=== PATIENT | male | born 1980 | race Native Hawaiian/Other Pacific Islander ===

== ENCOUNTER 2017-05-27 22:43 | Emergency (ER) | payer OTHER ==
[2017-05-28] MEDS ORDERED: ASPIRIN 81 MG PO STA (00:01)
[2017-05-28] MEDS ORDERED: RX INFO: IV CONTRAST WAS GIVEN 1 EACH MISC MISCELLANE PRN (00:01)
[2017-05-28] MEDS ORDERED: MORPHINE SULFATE 2 MG/ML SYRINGE IVP ONE (00:01)
[2017-05-28] MEDS ORDERED: ONDANSETRON 4 MG/2 ML VIAL IVP STA (00:06)
--- NOTE | 2017-05-28 00:08 | ED ---
Chest Pain [facility] - General Chief Complaint: Chest Pain Stated Complaint: Chest/Rib/Back Pain Time Seen by Provider: 05/27/17 23:38 Source: patient Mode of arrival: wheelchair Limitations: no limitations - History of Present Illness Initial Comments: patient is a 37-year-old male with no reported medical history who presents with a chief complaint chest pain and had back pain. The patient states that this pain started around 8 PM today. He cannot identify any inciting incidences. There are no aggravating or alleviating factors. Timing is constant. Patient states that he has not experienced pain like this before. Patient denies any nausea, vomiting, diaphoresis, lightheadedness. - Related Data Previous Rx's Medication Instructions Recorded Lisinopril [Prinivil] 20 mg PO DAILY #30 tablet 05/28/17 Allergies Allergy/AdvReac Type Severity Reaction Status Date / Time aspirin Allergy Unknown Verified 05/27/17 22:49 Review of Systems ROS Statement: Those systems with pertinent positive or pertinent negative responses have been documented in the HPI. ROS Other: All systems not noted in ROS Statement are negative. Cardiovascular: Reports: chest pain Past Medical History Past Medical History: No Reported History History of Any Multi-Drug Resistant Organisms: None Reported Past Surgical History: No Surgical Hx Reported Past Psychological History: No Psychological Hx Reported Smoking Status: Current every day smoker Past Alcohol Use History: None Reported Past Drug Use History: None Reported General Exam Limitations: no limitations General appearance: alert, in no apparent distress Head exam: Present: atraumatic, normocephalic Eye exam: Present: normal appearance ENT exam: Present: normal exam Neck exam: Present: normal inspection Respiratory exam: Present: normal lung sounds bilaterally. Absent: respiratory distress Cardiovascular Exam: Present: regular rate, normal rhythm GI/Abdominal exam: Present: soft, tenderness (patient mild tenderness to palpation in the epigastric region). Absent: distended Rectal exam: Present: deferred Extremities exam: Present: normal inspection Back exam: Present: normal inspection Neurological exam: Present: alert, oriented X3 Psychiatric exam: Present: normal affect, normal mood Skin exam: Present: warm, dry, intact Course Vital Signs 05/27/17 05/27/17 22:47 23:49 Temperature 97.9 F Pulse Rate 83 76 Respiratory 22 20 Rate Blood Pressure 183/119 172/92 O2 Sat by Pulse 100 97 Oximetry Chest Pain [facility] patient presents with a chief complaint of chest pain and back pain. On initial evaluation, he is in no acute distress however he is noted to be hypertensive at 180/110. At this time, EKG performed at 2335 shows normal sinus rhythm with a rate of 103 bpm. EKG is otherwise unremarkable. Patient will have basic labs including liver profile and lipase. He'll be sent for a CT angio for evaluation of the aorta.patient was given aspirin and a dose of morphine for pain 1:16 AM Laboratory evaluation this patient is unremarkable except for a mild white count of 13,000. Renal function appears to be stable. CT evaluation of the thoracic and abdominal aorta shows no acute process. Aorta is normal caliber and widely patent. I discussed results with the patient. At this time, he is instructed to take Motrin and Tylenol for pain. Patient will be started on lisinopril 20 mg daily until he can follow-up with his primary care doctor for hypertension. Patient is agreeable with current care plan. On reevaluation he states he is feeling better. patient is currently eating a bag of chips. Disposition Clinical Impression: Chest pain, Abdominal pain, Hypertension Disposition: HOME SELF-CARE Condition: Good Instructions: Chest Pain (ED), Abdominal Pain (ED) Referrals: None,Stated [Primary Care Provider] - 1-2 days
[2017-05-28 00:21] LABS: Basophils # (A) 0.1 k/uL (0-0.2); Basophils % (A) 1 %; Eosinophils # (A) 0.4 k/uL (0-0.7); Eosinophils % (A) 3 %; HCT 47.1 % (39.0-53.0); HGB 16.4 gm/dL (13.0-17.5); Lymphocytes # (A) 4.5 k/uL (1.0-4.8); Lymphocytes % (A) 32 %; MCH 30.7 pg (25.0-35.0); MCHC 34.9 g/dL (31.0-37.0); Mean Platelet Volume 7.6; Monocytes # (A) 0.6 k/uL (0-1.0); Monocytes % (A) 4 %; Neutrophils # (A) 8.1 k/uL (1.3-7.7); Neutrophils % (A) 59 %; Platelet Count 270 k/uL (150-450); RBC 5.35 m/uL (4.30-5.90); RDW 12.9 % (11.5-15.5); WBC 13.8 k/uL (3.8-10.6)
[2017-05-28 00:28] LABS: ALT 49 U/L (21-72); AST 31 U/L (17-59); Albumin 4.9 g/dL (3.5-5.0); Alkaline Phosphatase 77 U/L (38-126); Anion Gap 14 mmol/L; Blood Urea Nitrogen 18 mg/dL (9-20); Calcium 10.3 mg/dL (8.4-10.2); Carbon Dioxide 27 mmol/L (22-30); Chloride 103 mmol/L (98-107); Glucose 85 mg/dL (74-99); Lipase 156 U/L (23-300); Potassium 4.2 mmol/L (3.5-5.1); Sodium 144 mmol/L (137-145); Total Bilirubin 0.3 mg/dL (0.2-1.3); Total Protein 7.9 g/dL (6.3-8.2)
[2017-05-28 00:46] VITALS: RESP 20
--- NOTE | 2017-05-28 01:06 | CT ---
EXAMINATION TYPE: CT angio thoracic/abd aorta DATE OF EXAM: 05/28/2017 COMPARISON: NONE HISTORY: Chest pain/back pain CT DLP: 846.30 mGycm. Automated Exposure Control for Dose Reduction was Utilized. CONTRAST: CT scan of the thorax, abdomen and pelvis is performed with IV Contrast, patient injected with 100 mL of Omnipaque 350. FINDINGS: There are 3-D post processed images. The lungs are clear of infiltrate. There is no pleural effusion. Heart size is normal. There is no pe ricardial effusion. The thoracic aorta has normal size. There is no evidence of aneurysm or dissection. I see no obvious filling defects in the pulmonary arteries. The abdominal aorta is widely patent. There is no evidence of aortic aneurysm or dissection. There is wide patency of the celiac artery and superior mesenteric artery. There is wide patency of t he iliac arteries. The renal arteries appear normal. There is a loop of small bowel in the lower abdo men measures up to 2.5 cm with fluid levels. There is no free air. There is no ascites. There is decr eased density throughout the liver consistent with fatty infiltration. I see no bony destructive proc ess. CONCLUSION: Negative CT angiogram of the chest and abdomen. There is some evidence for mild small bowel ileus. Fatty infiltration of the liver.
[2017-05-28] MEDS ORDERED: KETOROLAC 30 MG/ML 1 ML VIAL IVP STA (01:17)
[2017-05-28 01:33] VITALS: BP 170/93; PULSE 68; TEMP 97.7
== END 2017-05-28 01:38 | disposition home or self-care (01) ==
LOC: EC 22:43
DX: I10 Essential (primary) hypertension (principal); R07.9 Chest pain, unspecified; R10.9 Unspecified abdominal pain; M54.9 Dorsalgia, unspecified; F17.200 Nicotine dependence, unspecified, uncomplicated; Z88.6 Allergy status to analgesic agent; Z53.20 Procedure and treatment not carried out because of patient's decision for unspecified reasons
CPT/HCPCS: 36415; 93005; 80053; 83690; 84484; 85025; 75635; 71275; 99285; 96374; 96375 ×2; Q9967; J2405; J1885; J2270

== ENCOUNTER 2017-06-09 11:03 | Emergency (ER) | payer OTHER ==
[2017-06-09] MEDS ORDERED: KETOROLAC 30 MG/ML 1 ML VIAL IVP STA (12:46)
--- NOTE | 2017-06-09 12:50 | ED ---
General Adult HPI - General Chief complaint: Neck Pain/Injury Stated complaint: Fall-Diff Breathing, Back Pain Time Seen by Provider: 06/09/17 12:39 Source: patient, RN notes reviewed Mode of arrival: ambulatory Limitations: no limitations - History of Present Illness Initial comments: Patient 37-year-old male who presents emergency room today with a chief complaint of a fall that occurred yesterday. Since he was walking down some stairs tripped over cat falling down hitting the back of his posterior mid back. He states he does feel some discomfort in this area. He states this morning was having a difficult time sleeping. He woke up approximately 3 AM with a squeezing pressure type pain in his lower ribs bilaterally. He does admit that he had similar symptoms a few weeks ago was seen here in the emergency room. He states that last a few days and went away. Patient currently rates pain 8/10. Patient states can't seem to find comfortable position no matter how he sits or lays. Patient denies any other complaints or symptoms. He states that when he was seen previously for this he was having chest pain at this time has no chest pain today. Patient denies any recent fever , chills, shortness of breath, chest pain, back pain, abdominal pain, nausea or vomiting, numbness or tingling, dysuria or hematuria, constipation or diarrhea, headaches or visual changes, or any other complaints. - Related Data Previous Rx's Medication Instructions Recorded Lisinopril [Prinivil] 20 mg PO DAILY #30 tablet 05/28/17 Cyclobenzaprine [Flexeril] 10 mg PO TID #20 tab 06/09/17 Ibuprofen [Motrin] 600 mg PO Q6HR PRN #40 day 06/09/17 Allergies Allergy/AdvReac Type Severity Reaction Status Date / Time aspirin Allergy Unknown Verified 06/09/17 11:26 Review of Systems ROS Statement: Those systems with pertinent positive or pertinent negative responses have been documented in the HPI. ROS Other: All systems not noted in ROS Statement are negative. Past Medical History Past Medical History: No Reported History History of Any Multi-Drug Resistant Organisms: None Reported Past Surgical History: No Surgical Hx Reported Past Psychological History: No Psychological Hx Reported Smoking Status: Current every day smoker Past Alcohol Use History: None Reported Past Drug Use History: None Reported General Exam - General Exam Comments Initial Comments: General: The patient is awake and alert, in no distress, and does not appear acutely ill. Eye: Pupils are equal, round and reactive to light, extra-ocular movements are intact. No nystagmus. There is normal conjunctiva bilaterally. No signs of icterus. Ears, nose, mouth and throat: There are moist mucous membranes and no oral lesions. Neck: The neck is supple, there is no tenderness or JVD. Cardiovascular: There is a regular rate and rhythm. No murmur, rub or gallop is appreciated. Respiratory: Lungs are clear to auscultation, respirations are non-labored, breath sounds are equal. No wheezes, stridor, rales, or rhonchi. Gastrointestinal: Normal appearance of the abdomen. Normal bowel sounds. Abdomen soft on palpation. Mild tenderness epigastric. No rebound tenderness. No guarding. Musculoskeletal: Normal ROM, no tenderness. Strength 5/5. Sensation intact. Pulses equal bilaterally 2+. Neurological: A&O x 3. CN II-XII intact, There are no obvious motor or sensory deficits. Coordination appears grossly intact. Speech is normal. Skin: Skin is warm and dry and no rashes or lesions are noted. Psychiatric: Cooperative, appropriate mood & affect, normal judgment. Limitations: no limitations Course Vital Signs 06/09/17 11:24 Temperature 98.4 F Pulse Rate 82 Respiratory 20 Rate Blood Pressure 169/103 O2 Sat by Pulse 99 Oximetry EKG Findings - EKG Comments: EKG Findings:: EKG performed at 1305: A 12-lead EKG was performed and interpreted by me as showing the following: Rate is 61, and rhythm is normal sinus. There are normal QRS complexes and normal R-wave progression. ST segments have no elevation or depression, and NV segments appear normal. Medical Decision Making - Medical Decision Making Case discussed in detail with attending physician Dr. Nick. The patient reexamined at this time shows no signs of distress. Patient's EKG shows normal sinus rhythm. Patient's recent visit on May 27 was reviewed showing that he did have a CTA of thoracic showing a normal abnormality of the abdomen and chest at that time. Patient states his symptoms somewhat similar but different today. He states same type of rib pain there is no chest pain today. Patient' s x-rays are unremarkable today. Patient's enzymes negative. His symptoms started over 8 hours ago. At this time is feeling better after some Toradol. Patient discharged home to continue on anti-inflammatories and also tried a muscle relaxer. Advised follow same doctor over the next 2 days return to emergency room symptoms increase worsen. 1420: Blood pressure 148/95 - Lab Data Result diagrams: 06/09/17 13:10 06/09/17 13:10 Lab Results 06/09/17 06/09/17 06/09/17 Range/Units 13:10 13:10 13:10 WBC 10.5 (3.8-10.6) k/uL RBC 5.33 (4.30-5.90) m/uL Hgb 16.3 (13.0-17.5) gm/dL Hct 46.4 (39.0-53.0) % MCV 87.0 (80.0-100.0) fL MCH 30.5 (25.0-35.0) pg MCHC 35.1 (31.0-37.0) g/dL RDW 12.8 (11.5-15.5) % Plt Count 233 (150-450) k/uL Neutrophils % 63 % Lymphocytes % 29 % Monocytes % 4 % Eosinophils % 2 % Basophils % 1 % Neutrophils # 6.6 (1.3-7.7) k/uL Lymphocytes # 3.0 (1.0-4.8) k/uL Monocytes # 0.4 (0-1.0) k/uL Eosinophils # 0.2 (0-0.7) k/uL Basophils # 0.1 (0-0.2) k/uL Sodium 144 (137-145) mmol/L Potassium 4.4 (3.5-5.1) mmol/L Chloride 105 (98-107) mmol/L Carbon Dioxide 27 (22-30) mmol/L Anion Gap 12 mmol/L BUN 14 (9-20) mg/dL Creatinine 0.70 (0.66-1.25) mg/dL Est GFR (MDRD) Af Amer >60 (>60 ml/min/1.73 sqM) Est GFR (MDRD) Non-Af >60 (>60 ml/min/1.73 sqM) Glucose 93 (74-99) mg/dL Calcium 9.8 (8.4-10.2) mg/dL Total Bilirubin 0.3 (0.2-1.3) mg/dL AST 24 (17-59) U/L ALT 38 (21-72) U/L Alkaline Phosphatase 71 (38-126) U/L Total Creatine Kinase 93 (55-170) U/L CK-MB (CK-2) 0.5 (0.0-2.4) ng/mL CK-MB (CK-2) Rel Index 0.5 Troponin I <0.012 (0.000-0.034) ng/mL Total Protein 7.3 (6.3-8.2) g/dL Albumin 4.6 (3.5-5.0) g/dL Amylase 39 (30-110) U/L Lipase 81 (23-300) U/L Disposition Clinical Impression: Rib pain, Fall, Back pain Disposition: HOME SELF-CARE Condition: Good Instructions: Back Pain (ED) Additional Instructions: Please use medication as discussed. Please follow-up with family doctor in the next 2 days of symptoms have not improved. Please return to emergency room if the symptoms increase or worsen or for any other concerns. Prescriptions: Cyclobenzaprine [Flexeril] 10 mg PO TID #20 tab Ibuprofen [Motrin] 600 mg PO Q6HR PRN #40 day PRN Reason: Pain Referrals: Bernard Bowers MD [Primary Care Provider] - 1-2 days Time of Disposition: 14:24
[2017-06-09 13:18] LABS: Basophils # (A) 0.1 k/uL (0-0.2); Basophils % (A) 1 %; Eosinophils # (A) 0.2 k/uL (0-0.7); Eosinophils % (A) 2 %; HCT 46.4 % (39.0-53.0); HGB 16.3 gm/dL (13.0-17.5); Lymphocytes % (A) 29 %; MCH 30.5 pg (25.0-35.0); MCHC 35.1 g/dL (31.0-37.0); Mean Platelet Volume 7.4; Monocytes # (A) 0.4 k/uL (0-1.0); Monocytes % (A) 4 %; Neutrophils # (A) 6.6 k/uL (1.3-7.7); Neutrophils % (A) 63 %; Platelet Count 233 k/uL (150-450); RBC 5.33 m/uL (4.30-5.90); RDW 12.8 % (11.5-15.5); WBC 10.5 k/uL (3.8-10.6)
[2017-06-09 13:28] LABS: ALT 38 U/L (21-72); AST 24 U/L (17-59); Albumin 4.6 g/dL (3.5-5.0); Alkaline Phosphatase 71 U/L (38-126); Amylase 39 U/L (30-110); Anion Gap 12 mmol/L; Blood Urea Nitrogen 14 mg/dL (9-20); Calcium 9.8 mg/dL (8.4-10.2); Carbon Dioxide 27 mmol/L (22-30); Chloride 105 mmol/L (98-107); Glucose 93 mg/dL (74-99); Lipase 81 U/L (23-300); Potassium 4.4 mmol/L (3.5-5.1); Sodium 144 mmol/L (137-145); Total Bilirubin 0.3 mg/dL (0.2-1.3); Total Protein 7.3 g/dL (6.3-8.2)
--- NOTE | 2017-06-09 13:28 | XR ---
EXAMINATION TYPE: XR chest 2V DATE OF EXAM: 06/09/2017 COMPARISON: NONE HISTORY: Chest pain, difficulty breathing, trauma and pain TECHNIQUE: Frontal and lateral views of the chest are obtained. FINDINGS: There is no focal air space opacity, pleural effusion, or pneumothorax seen. The cardiac silhouette size is within normal limits. There is a mild spinal curvature. The osseous structures ar e intact. IMPRESSION: No acute cardiopulmonary process.
--- NOTE | 2017-06-09 13:36 | XR ---
EXAMINATION TYPE: XR thoracic spine complete DATE OF EXAM: 06/09/2017 CLINICAL HISTORY: Fall with mid back pain. TECHNIQUE: Frontal, lateral, and swimmer's view of thoracic spine are obtained. COMPARISON: None. FINDINGS: Thoracic spine show satisfactory alignment without evidence of acute fracture or dislocatio n. There is a minimal S-shaped scoliotic curvature of the visualized thoracolumbar spine, possibly po sitional in nature. Vertebral body heights and disc space heights are preserved. Mild multilevel dege nerative disc disease is seen as small anterior osteophytes. Visualized ribs are unremarkable. IMPRESSION: No acute fracture or malalignment is seen in the thoracic spine.
[2017-06-09 13:45] LABS: Creatine Kinase 93 U/L (55-170)
[2017-06-09 13:57] LABS: Creatine Kinase MB 0.5 ng/mL (0.0-2.4); Troponin I <0.012 ng/mL (0.000-0.034)
[2017-06-09 14:40] VITALS: BP 140/87; PULSE 64; RESP 16; TEMP 98.1
== END 2017-06-09 14:50 | disposition home or self-care (01) ==
LOC: EC 11:03
DX: M54.9 Dorsalgia, unspecified (principal); R07.81 Pleurodynia; M54.2 Cervicalgia; F17.200 Nicotine dependence, unspecified, uncomplicated; Z88.6 Allergy status to analgesic agent; W10.9XXA Fall (on) (from) unspecified stairs and steps, initial encounter; Y93.01 Activity, walking, marching and hiking
CPT/HCPCS: 99284; 96374; 80053; 36415; 93005; 82150; 82550; 82553; 83690; 84484; 85025; 72072; 71046; J1885

== ENCOUNTER 2022-07-24 13:59 | Emergency (ER) | payer OTHER ==
[2022-07-24 14:14] VITALS: RESP 18
[2022-07-24] MEDS ORDERED: hydrALAZINE HCL 20 MG/ML 1 ML VIAL IVP STA ×3 (14:25→17:10)
[2022-07-24] MEDS ORDERED: KETOROLAC 15 MG/ML 1 ML VIAL IVP STA (14:39)
[2022-07-24] MEDS ORDERED: ORPHENADRINE 30 MG/ML 2 ML VIAL IVP STA (14:39)
[2022-07-24 14:52] LABS: Basophils # (A) 0.1 k/uL (0-0.2); Basophils % (A) 1 %; Eosinophils # (A) 0.4 k/uL (0-0.7); Eosinophils % (A) 4 %; HCT 49.2 % (39.0-53.0); HGB 17.2 gm/dL (13.0-17.5); Lymphocytes # (A) 3.3 k/uL (1.0-4.8); Lymphocytes % (A) 33 %; MCH 30.4 pg (25.0-35.0); MCV 86.7 fL (80.0-100.0); Mean Platelet Volume 8.9; Monocytes # (A) 0.4 k/uL (0-1.0); Monocytes % (A) 4 %; Neutrophils # (A) 5.7 k/uL (1.3-7.7); Neutrophils % (A) 56 %; Platelet Count 176 k/uL (150-450); RBC 5.67 m/uL (4.30-5.90); RDW 14.1 % (11.5-15.5); WBC 10.2 k/uL (3.8-10.6)
[2022-07-24 15:03] LABS: INR 0.9 (<1.2); Partial Thromboplastin Time 23.8 sec (22.0-30.0); Prothrombin Time 9.8 sec (9.0-12.0)
[2022-07-24 15:04] LABS: ALT 35 U/L (4-49); AST 31 U/L (17-59); African American GFR (CKD) >90 (>60 ml/min/1.73 sqM); Albumin 4.6 g/dL (3.5-5.0); Alkaline Phosphatase 73 U/L (38-126); Anion Gap 8 mmol/L; Blood Urea Nitrogen 15 mg/dL (9-20); Calcium 8.9 mg/dL (8.4-10.2); Carbon Dioxide 25 mmol/L (22-30); Chloride 106 mmol/L (98-107); Glucose 119 mg/dL (74-99); Magnesium 2.1 mg/dL (1.6-2.3); Non-African American GFR(CKD) >90 (>60 ml/min/1.73 sqM); Potassium 3.8 mmol/L (3.5-5.1); Sodium 139 mmol/L (137-145); Total Bilirubin 0.7 mg/dL (0.2-1.3); Total Protein 7.4 g/dL (6.3-8.2)
--- NOTE | 2022-07-24 15:14 | XR ---
EXAMINATION TYPE: XR chest 2V DATE OF EXAM: 07/24/2022 COMPARISON: June 09, 2017 HISTORY: Chest pain TECHNIQUE: FINDINGS: Heart and mediastinum are normal. Lungs are clear. Diaphragm is normal. There are chest cricket ds. Bony thorax is intact IMPRESSION: Normal chest. No change.
[2022-07-24] MEDS ORDERED: DEXAMETHASONE SOD PHOSPHATE 10 MG/ML 1 ML VIAL IVP STA (15:38)
--- NOTE | 2022-07-24 16:22 | ED ---
General Adult HPI - General Chief complaint: Extremity Injury, Upper Stated complaint: rt arm numbness Time Seen by Provider: 07/24/22 14:16 Source: patient Mode of arrival: ambulatory Limitations: no limitations - History of Present Illness Initial comments: Patient is a 42-year-old male presenting with chief complaint of right forearm pain for the past week. Patient states that the pain comes and goes, feels like a throbbing pain throughout the forearm and hand, pain does not extend up past the elbow. Patient denies any injury or trauma. No swelling or discoloration. Patient does get numbness to the fingers. States the pain mainly follows along the medial border of the forearm. Patient does admit to working a job with repetitive motions. No chest pain or difficulty breathing. No palpitations or weakness. No nausea or vomiting. No headache, vision or hearing changes, dizziness. - Related Data Previous Rx's Medication Instructions Recorded amLODIPine [Norvasc] 5 mg PO DAILY #7 tab 07/24/22 methylPREDNISolone Dose Pack 4 mg PO DIRECTED #1 packet 07/24/22 [Medrol Dose Pack] Allergies Allergy/AdvReac Type Severity Reaction Status Date / Time aspirin Allergy Unknown Verified 07/24/22 15:17 Review of Systems ROS Statement: Those systems with pertinent positive or pertinent negative responses have been documented in the HPI. ROS Other: All systems not noted in ROS Statement are negative. Past Medical History Past Medical History: No Reported History History of Any Multi-Drug Resistant Organisms: None Reported Past Surgical History: No Surgical Hx Reported Past Psychological History: No Psychological Hx Reported Smoking Status: Current every day smoker Past Alcohol Use History: None Reported Past Drug Use History: None Reported General Exam Limitations: no limitations General appearance: alert, in no apparent distress Head exam: Present: atraumatic, normocephalic, normal inspection Eye exam: Present: normal appearance Neck exam: Present: normal inspection, full ROM Respiratory exam: Present: normal lung sounds bilaterally. Absent: respiratory distress, wheezes, rales, rhonchi, stridor Cardiovascular Exam: Present: regular rate, normal rhythm, normal heart sounds. Absent: systolic murmur, diastolic murmur, rubs, gallop, clicks Right Forearm Wrist exam: Present: normal inspection, full ROM. Absent: tenderness, swelling, ecchymosis, deformity, erythema Vascular: Present: radial pulse (2+). Absent: vascular compromise Neurological exam: Present: alert, oriented X3, CN II-XII intact Psychiatric exam: Present: normal affect, normal mood Skin exam: Present: warm, dry, intact, normal color. Absent: rash Course Vital Signs 07/24/22 07/24/22 07/24/22 14:12 14:33 15:58 Temperature 97.5 F L Pulse Rate 60 56 L 57 L Respiratory 18 18 18 Rate Blood Pressure 215/131 151/101 202/124 O2 Sat by Pulse 98 99 98 Oximetry 07/24/22 07/24/22 07/24/22 16:38 16:51 17:19 Temperature Pulse Rate 75 66 68 Respiratory 18 18 18 Rate Blood Pressure 170/111 194/125 189/119 O2 Sat by Pulse 97 97 Oximetry 07/24/22 07/24/22 07/24/22 17:39 18:00 18:11 Temperature 98.4 F Pulse Rate 71 79 84 Respiratory 18 18 18 Rate Blood Pressure 182/128 168/106 145/89 O2 Sat by Pulse 97 97 98 Oximetry EKG Findings - EKG Comments: EKG Findings:: Sinus rhythm ventricular rate 60. KS interval 161. QRS 117. QT 454. QTC 454. T-wave inversion in leads 1 and aVL Medical Decision Making - Medical Decision Making Was pt. sent in by a medical professional or institution ([facility], COMMISSARY WORKER, urgent care, hospital, or [facility]...) When possible be specific @ -No Did you speak to anyone other than the patient for history (EMS, parent, family, police, friend...)? What history was obtained from this source @ -No Did you review nursing and triage notes (agree or disagree)? Why? @ -I reviewed and agree with nursing and triage notes Were old charts reviewed (outside hosp., previous admission, EMS record, old EKG, old radiological studies, urgent care reports/EKG's, [facility] records)? Report findings @ -No old charts were reviewed Differential Diagnosis (chest pain, altered mental status, abdominal pain women, abdominal pain men, vaginal bleeding, weakness, fever, dyspnea, syncope, headache, dizziness, GI bleed, back pain, seizure, CVA, palpatations, mental health, musculoskeletal)? @ -Differential includes nerve impingement, sprain, DVT, cardiac ischemia, this is not an all inclusive list EKG interpreted by me (3pts min.). @ -As above X-rays interpreted by me (1pt min.). @ -Chest x-ray shows no acute process CT interpreted by me (1pt min.). @ -None done U/S interpreted by me (1pt. min.). @ -Ultrasound shows no evidence of DVT What testing was considered but not performed or refused? (CT, X-rays, U/S, labs)? Why? @ -None What meds were considered but not given or refused? Why? @ -None Did you discuss the management of the patient with other professionals (professionals i.e. DrKirk, PA, COMMISSARY WORKER, lab, RT, psych nurse, social services assistant, mediation commissioner, teacher, v/stol landing signal officer, machine adjuster leader case trim)? Give summary @ -No Was smoking cessation discussed for >3mins.? @ -No Was critical care preformed (if so, how long)? @ -No Were there social determinants of health that impacted care today? How? (Homelessness, low income, unemployed, alcoholism, drug addiction, transportation, low edu. Level, literacy, decrease access to med. care, half-way, rehab)? @ -No Was there de-escalation of care discussed even if they declined (Discuss DNR or withdrawal of care, Hospice)? DNR status @ -No What co-morbidities impacted this encounter? (DM, HTN, Smoking, COPD, CAD, Cancer, CVA, ARF, Chemo, Hep., AIDS, mental health diagnosis, sleep apnea, morbid obesity)? @ -Hypertension Was patient admitted / discharged? Hospital course, mention meds given and route, prescriptions, significant lab abnormalities, going to OR and other pertinent info. @ -Patient is a 42-year-old male presenting with chief complaint of right forearm pain as well as numbness and tingling that been going on for the last week. On physical examination the patient is hypertensive, he does not see a PCP and is not on any antihypertensives. Describes pain in what seems to be a nerve distribution. Lab work shows no leukocytosis or anemia. CMP is essentially unremarkable. Troponin is less than 0.012 and EKG shows no acute process. Chest x-ray shows no acute process and ultrasound shows no evidence of DVT. Patient is given 2 doses of hydralazine which helps normalize his blood pressure. Patient was started on Medrol Dosepak for suspected nerve related pain. He is started on amlodipine with a 7 day supply and instructed to follow- up with his PCP, call the office tomorrow. Follow-up with PCP. Report back to ER with any new or worsening symptoms. Discussed return parameters and answered all questions. Patient conveyed verbal understanding and agreed to the plan. I discussed this case in detail with my attending Dr. Kimbrough Undiagnosed new problem with uncertain prognosis? @ -No Drug Therapy requiring intensive monitoring for toxicity (Heparin, Nitro, Insulin, Cardizem)? @ -No Were any procedures done? @ -No Diagnosis/symptom? @ -Paresthesias Acute, or Chronic, or Acute on Chronic? @ -Acute Uncomplicated (without systemic symptoms) or Complicated (systemic symptoms)? @ -Uncomplicated Side effects of treatment? @ -No Exacerbation, Progression, or Severe Exacerbation? @ -No Poses a threat to life or bodily function? How? (Chest pain, [place], [place], pneumonia, PE, COPD, DKA, ARF, appy, cholecystitis, CVA, Diverticulitis, Homicidal, Suicidal, threat to staff... and all critical care pts) @ -No Diagnosis/symptom? @Hypertension Acute, or Chronic, or Acute on Chronic? @ chronic Uncomplicated (without systemic symptoms) or Complicated (systemic symptoms)? @Uncomplicated Side effects of treatment? @Hypotension Exacerbation, Progression, or Severe Exacerbation] @ no Poses a threat to life or bodily function? @Yes, stressed the importance of follow-up - Lab Data Result diagrams: 07/24/22 14:39 07/24/22 14:39 Lab Results 07/24/22 07/24/22 07/24/22 Range/Units 14:39 14:39 14:39 WBC 10.2 (3.8-10.6) k/uL RBC 5.67 (4.30-5.90) m/uL Hgb 17.2 (13.0-17.5) gm/dL Hct 49.2 (39.0-53.0) % MCV 86.7 (80.0-100.0) fL MCH 30.4 (25.0-35.0) pg MCHC 35.0 (31.0-37.0) g/dL RDW 14.1 (11.5-15.5) % Plt Count 176 (150-450) k/uL MPV 8.9 Neutrophils % 56 % Lymphocytes % 33 % Monocytes % 4 % Eosinophils % 4 % Basophils % 1 % Neutrophils # 5.7 (1.3-7.7) k/uL Lymphocytes # 3.3 (1.0-4.8) k/uL Monocytes # 0.4 (0-1.0) k/uL Eosinophils # 0.4 (0-0.7) k/uL Basophils # 0.1 (0-0.2) k/uL PT 9.8 (9.0-12.0) sec INR 0.9 (<1.2) APTT 23.8 (22.0-30.0) sec Sodium 139 (137-145) mmol/L Potassium 3.8 (3.5-5.1) mmol/L Chloride 106 (98-107) mmol/L Carbon Dioxide 25 (22-30) mmol/L Anion Gap 8 mmol/L BUN 15 (9-20) mg/dL Creatinine 0.88 (0.66-1.25) mg/dL Est GFR (CKD-EPI)AfAm >90 (>60 ml/min/1.73 sqM) Est GFR (CKD-EPI)NonAf >90 (>60 ml/min/1.73 sqM) Glucose 119 H (74-99) mg/dL Calcium 8.9 (8.4-10.2) mg/dL Magnesium 2.1 (1.6-2.3) mg/dL Total Bilirubin 0.7 (0.2-1.3) mg/dL AST 31 (17-59) U/L ALT 35 (4-49) U/L Alkaline Phosphatase 73 (38-126) U/L Troponin I (0.000-0.034) ng/mL Total Protein 7.4 (6.3-8.2) g/dL Albumin 4.6 (3.5-5.0) g/dL 07/24/22 Range/Units 14:39 WBC (3.8-10.6) k/uL RBC (4.30-5.90) m/uL Hgb (13.0-17.5) gm/dL Hct (39.0-53.0) % MCV (80.0-100.0) fL MCH (25.0-35.0) pg MCHC (31.0-37.0) g/dL RDW (11.5-15.5) % Plt Count (150-450) k/uL MPV Neutrophils % % Lymphocytes % % Monocytes % % Eosinophils % % Basophils % % Neutrophils # (1.3-7.7) k/uL Lymphocytes # (1.0-4.8) k/uL Monocytes # (0-1.0) k/uL Eosinophils # (0-0.7) k/uL Basophils # (0-0.2) k/uL PT (9.0-12.0) sec INR (<1.2) APTT (22.0-30.0) sec Sodium (137-145) mmol/L Potassium (3.5-5.1) mmol/L Chloride (98-107) mmol/L Carbon Dioxide (22-30) mmol/L Anion Gap mmol/L BUN (9-20) mg/dL Creatinine (0.66-1.25) mg/dL Est GFR (CKD-EPI)AfAm (>60 ml/min/1.73 sqM) Est GFR (CKD-EPI)NonAf (>60 ml/min/1.73 sqM) Glucose (74-99) mg/dL Calcium (8.4-10.2) mg/dL Magnesium (1.6-2.3) mg/dL Total Bilirubin (0.2-1.3) mg/dL AST (17-59) U/L ALT (4-49) U/L Alkaline Phosphatase (38-126) U/L Troponin I <0.012 (0.000-0.034) ng/mL Total Protein (6.3-8.2) g/dL Albumin (3.5-5.0) g/dL Disposition Clinical Impression: Paresthesias Disposition: HOME SELF-CARE Condition: Good Instructions (If sedation given, give patient instructions): Paresthesia (ED), Hypertension (ED) Additional Instructions: Follow-up with PCP. Report back to ER with any new or worsening symptoms. Take medication as prescribed. Prescriptions: methylPREDNISolone Dose Pack [Medrol Dose Pack] 4 mg PO DIRECTED #1 packet amLODIPine [Norvasc] 5 mg PO DAILY #7 tab Is patient prescribed a controlled substance at d/c from ED?: No Referrals: Bernard Bowers MD [Primary Care Provider] - 1-2 days Time of Disposition: 16:47
--- NOTE | 2022-07-24 16:30 | US ---
EXAMINATION TYPE: US venous doppler duplex UE RT DATE OF EXAM: 07/24/2022 COMPARISON: NONE CLINICAL HISTORY: pain. Right arm pain. No redness. No swelling. No injury. SIDE PERFORMED: Right Right Arm: Negative for DVT There is venous flow demonstrated in the subclavian axial and brachial vein. IMPRESSION: No evidence of deep vein thrombosis in the right arm.
[2022-07-24 18:15] VITALS: BP 145/89; PULSE 84; TEMP 98.4
== END 2022-07-24 18:25 | disposition home or self-care (01) ==
LOC: EC 13:59
DX: R20.2 Paresthesia of skin (principal); F17.200 Nicotine dependence, unspecified, uncomplicated; Z88.8 Allergy status to other drugs, medicaments and biological substances
CPT/HCPCS: 36415; 93005; 80053; 83735; 84484; 85025; 85610; 85730; 71046; 93971; 99284; 96374; 96375 ×3; 96376; J0360; J1100; J2360; J1885